=== PATIENT | female | born 1955 | race Caucasian/White ===

== ENCOUNTER 2018-03-03 10:31 | Emergency (ER) | payer SELFPAY, OTHER | END 2018-03-03 11:41 | disposition home or self-care (01) | LOC: FTE 10:31 | DX: L03.011 Cellulitis of right finger (principal); E11.9 Type 2 diabetes mellitus without complications; I10 Essential (primary) hypertension | CPT/HCPCS: 99283 ==

== ENCOUNTER 2018-03-05 05:45 | Emergency (ER) | payer MEDICAID | END 2018-03-05 06:46 | disposition home or self-care (01) | LOC: FTE 05:45 | DX: L03.011 Cellulitis of right finger (principal); E11.9 Type 2 diabetes mellitus without complications; I10 Essential (primary) hypertension | CPT/HCPCS: 10060; 99283-25 ==

== ENCOUNTER 2018-03-07 06:58 | Emergency (ER) | payer MEDICAID | END 2018-03-07 08:40 | disposition home or self-care (01) | LOC: FTE 06:58 | DX: L53.9 Erythematous condition, unspecified (principal); I10 Essential (primary) hypertension; E11.9 Type 2 diabetes mellitus without complications | CPT/HCPCS: 99283; Z7502 ==

== ENCOUNTER 2018-03-09 05:10 | Emergency (ER) | payer MEDICAID | END 2018-03-09 05:40 | disposition home or self-care (01) | LOC: FTE 05:10 | DX: Z48.01 Encounter for change or removal of surgical wound dressing (principal); I10 Essential (primary) hypertension; E11.9 Type 2 diabetes mellitus without complications | CPT/HCPCS: 99281 ==

== ENCOUNTER 2018-12-22 05:50 | Inpatient (IN) | payer OTHER, MEDICAID ==
[2018-12-22] MEDS: ASPIRIN 81 MG TAB PO (06:41)
[2018-12-22] MEDS: DILTIAZEM 25 MG INJ IV ×2 (06:42→07:07)
[2018-12-22 06:56] LABS: ADD MAN DIFF? NO
[2018-12-22 06:59] LABS: WHITE BLOOD COUNT 11.8 10^3/ul (4.8-10.8)
[2018-12-22 06:59] LABS: BASOPHILS % 0.3 % (0.0-2.0); EOSINOPHILS % 0.2 % (0.0-7.0); HEMATOCRIT 40.3 % (37.0-47.0); HEMOGLOBIN 13.4 g/dl (12.0-16.0); LYMPHOCYTES % 16.7 % (15.0-51.0); MEAN CORPUSCULAR HEMOGLOBIN 30.2 pg (29.0-33.0); MEAN CORPUSCULAR HGB CONC 33.3 g/dl (32.0-37.0); MEAN PLATELET VOLUME 11.2 fl (7.4-10.4); MONOCYTE # 0.9 10^3/ul (0.3-0.9); MONOCYTES % 7.4 % (0.0-11.0); NEUTROPHIL # 8.8 10^3/ul (1.6-7.5); NEUTROPHILS % 74.8 % (39.0-77.0); PLATELET COUNT 207 10^3/UL (140-415); RED BLOOD COUNT 4.43 10^6/ul (4.20-5.40); RED CELL DISTRIBUTION WIDTH 13.2 % (11.5-14.5)
[2018-12-22 07:17] LABS: INR 1.03; PROTIME 13.6 Sec (11.9-14.9); PT RATIO 1.1
[2018-12-22 07:18] LABS: PARTIAL THROMBOPLASTIN TIME 30.3 Sec (23.0-35.0)
[2018-12-22 07:21] LABS: ANION GAP 16 (5-13); BLOOD UREA NITROGEN 26 mg/dl (7-20); CALCIUM 9.7 mg/dl (8.4-10.2); CARBON DIOXIDE 23 mmol/L (21-31); CHLORIDE 101 mmol/L (97-110); CREATININE 0.97 mg/dl (0.44-1.00); Estimated GFR 58 mL/min (>60); GLUCOSE 207 mg/dl (70-220); POTASSIUM 3.6 mmol/L (3.5-5.1); SODIUM 140 mmol/L (135-144)
[2018-12-22 07:32] LABS: B-TYPE NATRIURETIC PEPTIDE 1120 PG/ML (0-125); TROPONIN-I < 0.012 ng/ml (0.000-0.120)
[2018-12-22] MEDS: DILTIAZEM-D5W 125MG/125ML DRIP 125 ML IV (07:50)
[2018-12-22] MEDS: SOD CHLORIDE 0.9% 500 ML IV (08:13)
[2018-12-22] MEDS: METOPROLOL 5 MG INJ IV (08:14)
[2018-12-22] MEDS: ACETAMINOPHEN 500 MG TAB PO ×2 (09:19→23:39)
[2018-12-22 11:41] LABS: FREE T4 (FREE THYROXINE) 1.79 ng/dl (0.78-2.44)
[2018-12-22] MEDS: ENOXAPARIN 100 MG/ML SYG SC ×2 (12:14→21:02)
[2018-12-22] MEDS: AMIODARONE 150MG/D5W BOLUS 100 ML IV (12:14)
[2018-12-22] MEDS: AZITHROMYCIN 250 MG TAB PO (12:15)
[2018-12-22 12:20] LABS: ADD UMIC YES; UR ASCORBIC ACID NEGATIVE (NEGATIVE); UR BILIRUBIN (Dip) NEGATIVE (NEGATIVE); UR BLOOD (Dip) NEGATIVE (NEGATIVE); UR CLARITY CLOUDY (CLEAR); UR COLOR AMBER (YELLOW); UR GLUCOSE (Dip) 3+ mg/dL (NEGATIVE); UR KETONES (Dip) TRACE mg/dL (NEGATIVE); UR LEUKOCYTE ESTERASE (Dip) TRACE Leu/ul (NEGATIVE); UR NITRITE (Dip) NEGATIVE (NEGATIVE); UR NONSQUAMOUS EPITHELIAL CELL 2 /HPF (NONE SEEN); UR RBC 5 /HPF (0-5); UR SPECIFIC GRAVITY (Dip) 1.028 (1.003-1.030); UR SQUAMOUS EPITHELIAL CELL FEW /HPF (FEW); UR TOTAL PROTEIN (Dip) 1+ mg/dl (NEGATIVE); UR UROBILINOGEN (Dip) 2+ mg/dL (NEGATIVE); UR WBC 15 /HPF (0-5)
[2018-12-22 12:43] LABS: AMPHETAMINE/METHAMPHETAMINE Negative (NEGATIVE); BARBITURATES Negative (NEGATIVE); BENZODIAZEPINES Negative (NEGATIVE); CANNABINOIDS Negative (NEGATIVE); COCAINE Negative (NEGATIVE); OPIATES Positive (NEGATIVE)
[2018-12-22 13:15] LABS: CREATINE KINASE 88 IU/L (23-200)
[2018-12-22 13:28] LABS: CK INDEX 1.6; TROPONIN-I 0.032 ng/ml (0.000-0.120)
[2018-12-22] MEDS ORDERED: GLUCOSE GEL 15 GRAM TUBE PO ×2 (18:30)
[2018-12-22] MEDS ORDERED: DEXTROSE 50% 50 ML SYRINGE IV ×2 (18:30)
[2018-12-22] MEDS ORDERED: GLUCOSE GEL 15 GRAM TUBE BUCCAL (18:30)
[2018-12-22] MEDS ORDERED: GLUCAGON 1 MG INJ IM (18:30)
[2018-12-22 19:41] LABS: CREATINE KINASE 76 IU/L (23-200)
[2018-12-22] MEDS: AMIODARONE 900 MG in DEXTROSE 5% 482 ML IV (19:44)
[2018-12-22 19:55] LABS: CK INDEX 1.6; CK-MB 1.19 ng/ml (0.0-2.4)
[2018-12-22] MEDS ORDERED: DIGOXIN 500 MCG INJ IV (20:56)
[2018-12-22] MEDS: INSULIN ASPART [NOVOLOG] 3 ML PEN SC ×2 (21:03→21:04)
[2018-12-22] MEDS: INSULIN GLARGINE [LANTus] (100 UNITS/ML) SYG SC (21:06)
[2018-12-22] MEDS: ATORVASTATIN 20 MG TAB PO (21:06)
[2018-12-22] MEDS: DIGOXIN 500 MCG INJ IV (21:08)
[2018-12-22] MEDS: ALBUTEROL HFA 8 GM INHALER INH (21:45)
[2018-12-23] MEDS: INSULIN ASPART [NOVOLOG] 3 ML PEN SC ×9 (01:00→20:36)
[2018-12-23] MEDS: ACCU-CHEK XX (01:44)
[2018-12-23 05:40] LABS: ADD MAN DIFF? NO
[2018-12-23 05:54] LABS: BASOPHILS % 0.4 % (0.0-2.0); EOSINOPHILS # 0.1 10^3/ul (0.0-0.5); HEMATOCRIT 35.2 % (37.0-47.0); HEMOGLOBIN 11.6 g/dl (12.0-16.0); LYMPHOCYTES # 1.7 10^3/ul (0.8-2.9); LYMPHOCYTES % 24.5 % (15.0-51.0); MEAN CORPUSCULAR HEMOGLOBIN 30.6 pg (29.0-33.0); MEAN CORPUSCULAR VOLUME 92.9 fl (82.0-101.0); MEAN PLATELET VOLUME 11.1 fl (7.4-10.4); MONOCYTE # 0.6 10^3/ul (0.3-0.9); MONOCYTES % 8.6 % (0.0-11.0); NEUTROPHIL # 4.5 10^3/ul (1.6-7.5); NEUTROPHILS % 65.1 % (39.0-77.0); PLATELET COUNT 190 10^3/UL (140-415); RED BLOOD COUNT 3.79 10^6/ul (4.20-5.40); RED CELL DISTRIBUTION WIDTH 13.3 % (11.5-14.5)
[2018-12-23] MEDS: ACETAMINOPHEN 500 MG TAB PO ×3 (05:56→23:58)
[2018-12-23 06:02] LABS: CHOL/HDL RATIO 3.9 RATIO; CHOLESTEROL 119 mg/dl (100-200); HDL CHOLESTEROL 30 mg/dl (35-98); LDL CHOLESTEROL,CALCULATED 61 mg/dl; MAGNESIUM 1.2 mg/dl (1.7-2.5); TRIGLYCERIDES 138 mg/dl (0-149)
[2018-12-23 06:02] LABS: PHOSPHORUS 2.4 mg/dl (2.5-4.9)
[2018-12-23] MEDS: CHOLECALCIFEROL 1,000 UNIT TAB PO (08:20)
[2018-12-23] MEDS: ENOXAPARIN 100 MG/ML SYG SC (08:37)
[2018-12-23] MEDS: METOPROLOL 25 MG TAB PO (10:56)
[2018-12-23] MEDS: AZITHROMYCIN 250 MG TAB PO (11:02)
[2018-12-23] MEDS: MAGNESIUM SULFATE 1 GM/D5W 100 ML IVPB (12:13)
[2018-12-23] MEDS: FUROSEMIDE 20 MG INJ IV (13:50)
[2018-12-23] MEDS: RIVAROXABAN 20 MG TABLET PO (18:54)
[2018-12-23] MEDS: METOPROLOL 50 MG TAB PO (20:29)
[2018-12-23] MEDS: DOXYCYCLINE 100 MG TAB PO (20:38)
[2018-12-23] MEDS: INSULIN GLARGINE [LANTus] (100 UNITS/ML) SYG SC (20:41)
[2018-12-23] MEDS: ATORVASTATIN 20 MG TAB PO (21:29)
[2018-12-24] MEDS: INSULIN ASPART [NOVOLOG] 3 ML PEN SC ×9 (01:00→21:50)
[2018-12-24] MEDS: ACCU-CHEK XX (01:55)
[2018-12-24] MEDS: traMADol 50 MG TAB PO ×3 (04:19→21:37)
[2018-12-24 05:46] LABS: ADD MAN DIFF? NO; BASOPHILS % 0.1 % (0.0-2.0); EOSINOPHILS # 0.1 10^3/ul (0.0-0.5); EOSINOPHILS % 1.1 % (0.0-7.0); HEMATOCRIT 33.7 % (37.0-47.0); HEMOGLOBIN 11.3 g/dl (12.0-16.0); LYMPHOCYTES # 1.2 10^3/ul (0.8-2.9); LYMPHOCYTES % 15.6 % (15.0-51.0); MEAN CORPUSCULAR HEMOGLOBIN 30.6 pg (29.0-33.0); MEAN CORPUSCULAR HGB CONC 33.5 g/dl (32.0-37.0); MEAN CORPUSCULAR VOLUME 91.3 fl (82.0-101.0); MEAN PLATELET VOLUME 10.5 fl (7.4-10.4); MONOCYTE # 0.7 10^3/ul (0.3-0.9); MONOCYTES % 8.6 % (0.0-11.0); NEUTROPHIL # 5.9 10^3/ul (1.6-7.5); NEUTROPHILS % 74.2 % (39.0-77.0); PLATELET COUNT 206 10^3/UL (140-415); RED BLOOD COUNT 3.69 10^6/ul (4.20-5.40)
[2018-12-24 05:46] LABS: WHITE BLOOD COUNT 7.9 10^3/ul (4.8-10.8)
[2018-12-24 05:56] LABS: ANION GAP 8 (5-13); BLOOD UREA NITROGEN 24 mg/dl (7-20); CALCIUM 9.7 mg/dl (8.4-10.2); CARBON DIOXIDE 28 mmol/L (21-31); CHLORIDE 103 mmol/L (97-110); CREATININE 0.72 mg/dl (0.44-1.00); Estimated GFR > 60 mL/min (>60); GLUCOSE 134 mg/dl (70-220); POTASSIUM 3.4 mmol/L (3.5-5.1); SODIUM 139 mmol/L (135-144)
[2018-12-24 06:06] LABS: PHOSPHORUS 2.7 mg/dl (2.5-4.9)
[2018-12-24] MEDS: POTASSIUM CHLORIDE (SR) 20 MEQ TAB PO (06:59)
[2018-12-24] MEDS: MAGNESIUM SULFATE 4 GM/100 ML 100 ML IVPB (09:30)
[2018-12-24] MEDS: DOXYCYCLINE 100 MG TAB PO ×2 (09:47→21:37)
[2018-12-24] MEDS: METOPROLOL 50 MG TAB PO ×2 (09:47→21:36)
[2018-12-24] MEDS: LISINOPRIL 20 MG TAB PO (09:48)
[2018-12-24] MEDS: CHOLECALCIFEROL 1,000 UNIT TAB PO (09:48)
[2018-12-24] MEDS: POTASSIUM CHLORIDE 100 ML IVPB (10:35)
[2018-12-24] MEDS: KETOROLAC 30 MG INJ IM (17:31)
[2018-12-24] MEDS: ATORVASTATIN 20 MG TAB PO (21:35)
[2018-12-24] MEDS: RIVAROXABAN 20 MG TABLET PO (21:36)
[2018-12-24] MEDS: INSULIN GLARGINE [LANTus] (100 UNITS/ML) SYG SC (21:50)
[2018-12-25] MEDS: INSULIN ASPART [NOVOLOG] 3 ML PEN SC ×6 (01:00→17:08)
[2018-12-25] MEDS: ACCU-CHEK XX (02:00)
[2018-12-25 05:55] LABS: ADD MAN DIFF? NO
[2018-12-25 06:06] LABS: BASOPHILS % 0.2 % (0.0-2.0); EOSINOPHILS # 0.2 10^3/ul (0.0-0.5); EOSINOPHILS % 2.9 % (0.0-7.0); HEMOGLOBIN 10.8 g/dl (12.0-16.0); LYMPHOCYTES # 1.4 10^3/ul (0.8-2.9); LYMPHOCYTES % 25.9 % (15.0-51.0); MEAN CORPUSCULAR HEMOGLOBIN 30.3 pg (29.0-33.0); MEAN CORPUSCULAR HGB CONC 32.7 g/dl (32.0-37.0); MEAN CORPUSCULAR VOLUME 92.4 fl (82.0-101.0); MEAN PLATELET VOLUME 10.5 fl (7.4-10.4); MONOCYTE # 0.6 10^3/ul (0.3-0.9); MONOCYTES % 11.1 % (0.0-11.0); NEUTROPHIL # 3.3 10^3/ul (1.6-7.5); NEUTROPHILS % 59.7 % (39.0-77.0); PLATELET COUNT 212 10^3/UL (140-415); RED BLOOD COUNT 3.57 10^6/ul (4.20-5.40); RED CELL DISTRIBUTION WIDTH 13.2 % (11.5-14.5)
[2018-12-25 06:06] LABS: WHITE BLOOD COUNT 5.5 10^3/ul (4.8-10.8)
[2018-12-25 06:42] LABS: ANION GAP 9 (5-13); BLOOD UREA NITROGEN 34 mg/dl (7-20); CALCIUM 9.9 mg/dl (8.4-10.2); CARBON DIOXIDE 25 mmol/L (21-31); CHLORIDE 104 mmol/L (97-110); CREATININE 0.93 mg/dl (0.44-1.00); Estimated GFR > 60 mL/min (>60); GLUCOSE 136 mg/dl (70-220); SODIUM 138 mmol/L (135-144)
[2018-12-25 07:14] LABS: POTASSIUM 3.9 mmol/L (3.5-5.1)
[2018-12-25] MEDS: LISINOPRIL 20 MG TAB PO (08:15)
[2018-12-25] MEDS: METOPROLOL 50 MG TAB PO ×2 (08:16→20:10)
[2018-12-25] MEDS: DOXYCYCLINE 100 MG TAB PO ×2 (08:16→20:09)
[2018-12-25] MEDS: CHOLECALCIFEROL 1,000 UNIT TAB PO (08:16)
[2018-12-25 14:23] LABS: MAGNESIUM 1.6 mg/dl (1.7-2.5)
[2018-12-25 14:44] LABS: HEMOGLOBIN A1C 6.9 % (0-5.9)
[2018-12-25] MEDS: MAGNESIUM SULFATE 2 GM/50 ML 50 ML IVPB (15:31)
[2018-12-25] MEDS: RIVAROXABAN 20 MG TABLET PO (17:03)
[2018-12-25] MEDS: Insulin NOVOLOG SS MILD Algorithm (SS with meals and bedtime) SC ×2 (17:04→20:23)
[2018-12-25] MEDS ORDERED: INSULIN ASPART [NOVOLOG] 3 ML PEN SC (17:30)
[2018-12-25] MEDS: ATORVASTATIN 20 MG TAB PO (20:10)
[2018-12-25] MEDS: INSULIN GLARGINE [LANTus] (100 UNITS/ML) SYG SC (20:24)
[2018-12-26] MEDS: ACCU-CHEK XX (02:01)
[2018-12-26 05:22] LABS: ADD MAN DIFF? NO
[2018-12-26 05:42] LABS: BASOPHILS % 0.3 % (0.0-2.0); EOSINOPHILS # 0.1 10^3/ul (0.0-0.5); HEMATOCRIT 33.8 % (37.0-47.0); HEMOGLOBIN 11.3 g/dl (12.0-16.0); LYMPHOCYTES # 1.7 10^3/ul (0.8-2.9); LYMPHOCYTES % 24.8 % (15.0-51.0); MEAN CORPUSCULAR HEMOGLOBIN 30.6 pg (29.0-33.0); MEAN CORPUSCULAR HGB CONC 33.4 g/dl (32.0-37.0); MEAN CORPUSCULAR VOLUME 91.6 fl (82.0-101.0); MEAN PLATELET VOLUME 10.5 fl (7.4-10.4); MONOCYTE # 0.7 10^3/ul (0.3-0.9); MONOCYTES % 9.2 % (0.0-11.0); NEUTROPHIL # 4.5 10^3/ul (1.6-7.5); NEUTROPHILS % 63.4 % (39.0-77.0); PLATELET COUNT 243 10^3/UL (140-415); RED BLOOD COUNT 3.69 10^6/ul (4.20-5.40); RED CELL DISTRIBUTION WIDTH 13.1 % (11.5-14.5)
[2018-12-26 06:14] LABS: ANION GAP 8 (5-13); BLOOD UREA NITROGEN 34 mg/dl (7-20); CALCIUM 9.9 mg/dl (8.4-10.2); CARBON DIOXIDE 26 mmol/L (21-31); CHLORIDE 105 mmol/L (97-110); CREATININE 0.76 mg/dl (0.44-1.00); Estimated GFR > 60 mL/min (>60); GLUCOSE 160 mg/dl (70-220); POTASSIUM 4.3 mmol/L (3.5-5.1); SODIUM 139 mmol/L (135-144)
[2018-12-26 06:41] LABS: MAGNESIUM 1.4 mg/dl (1.7-2.5)
[2018-12-26 06:41] LABS: PHOSPHORUS 2.9 mg/dl (2.5-4.9)
[2018-12-26] MEDS: Insulin NOVOLOG SS MILD Algorithm (SS with meals and bedtime) SC ×4 (08:03→20:24)
[2018-12-26] MEDS: INSULIN ASPART [NOVOLOG] 3 ML PEN SC ×3 (08:03→17:20)
[2018-12-26] MEDS: MAGNESIUM SULFATE 2 GM/50 ML 50 ML IVPB (08:28)
[2018-12-26] MEDS: CHOLECALCIFEROL 1,000 UNIT TAB PO (08:30)
[2018-12-26] MEDS: DOXYCYCLINE 100 MG TAB PO ×2 (08:30→20:14)
[2018-12-26] MEDS: METOPROLOL 50 MG TAB PO ×2 (08:32→20:15)
[2018-12-26] MEDS: LISINOPRIL 20 MG TAB PO (08:32)
[2018-12-26] MEDS: ATORVASTATIN 20 MG TAB PO (20:14)
[2018-12-26] MEDS: INSULIN GLARGINE [LANTus] (100 UNITS/ML) SYG SC (20:24)
[2018-12-27] MEDS: ACCU-CHEK XX (02:00)
[2018-12-27] MEDS: INSULIN ASPART [NOVOLOG] 3 ML PEN SC ×3 (07:42→17:24)
[2018-12-27] MEDS: Insulin NOVOLOG SS MILD Algorithm (SS with meals and bedtime) SC ×3 (07:42→17:24)
[2018-12-27] MEDS: METOPROLOL 50 MG TAB PO (08:17)
[2018-12-27] MEDS: CHOLECALCIFEROL 1,000 UNIT TAB PO (08:18)
[2018-12-27] MEDS: LISINOPRIL 20 MG TAB PO (08:18)
[2018-12-27] MEDS: DOXYCYCLINE 100 MG TAB PO (08:18)
[2018-12-27] MEDS: RIVAROXABAN 20 MG TABLET PO (13:57)
== END 2018-12-27 17:45 | disposition home or self-care (01) | DRG 308 ==
LOC: E/R 05:50 → 6WM 12-23 22:18 → ICU 07:47
DX: I48.0 Paroxysmal atrial fibrillation (principal); I50.31 Acute diastolic (congestive) heart failure; J18.9 Pneumonia, unspecified organism; I13.0 Hypertensive heart and chronic kidney disease with heart failure and stage 1 through stage 4 chronic kidney disease, or unspecified chronic kidney disease; R07.9 Chest pain, unspecified; E78.5 Hyperlipidemia, unspecified; E11.22 Type 2 diabetes mellitus with diabetic chronic kidney disease; N18.2 Chronic kidney disease, stage 2 (mild); E83.42 Hypomagnesemia; E83.39 Other disorders of phosphorus metabolism; J06.9 Acute upper respiratory infection, unspecified; E87.6 Hypokalemia; M17.11 Unilateral primary osteoarthritis, right knee; M25.461 Effusion, right knee; Z79.84 Long term (current) use of oral hypoglycemic drugs
CPT/HCPCS: 36415; 71045; 73562; 73590; 80048; 80061; 80307; 81001; 82550; 82553; 82962; 83036; 83735; 83880; 84100; 84439; 84443; 84484; 85025; 85610; 85730; 87081; 87086; 93005; 93306; 93970; 96374; 97116; 97162; 99291-25

== ENCOUNTER 2019-04-27 15:51 | Inpatient (IN) | payer OTHER ==
[2019-04-27 16:51] LABS: ADD MAN DIFF? NO
[2019-04-27 16:53] LABS: WHITE BLOOD COUNT 7.2 10^3/ul (4.8-10.8)
[2019-04-27 16:53] LABS: BASOPHILS % 0.6 % (0.0-2.0); EOSINOPHILS # 0.1 10^3/ul (0.0-0.5); EOSINOPHILS % 1.8 % (0.0-7.0); HEMATOCRIT 39.8 % (37.0-47.0); HEMOGLOBIN 13.3 g/dl (12.0-16.0); LYMPHOCYTES # 2.8 10^3/ul (0.8-2.9); LYMPHOCYTES % 38.5 % (15.0-51.0); MEAN CORPUSCULAR HEMOGLOBIN 30.7 pg (29.0-33.0); MEAN CORPUSCULAR HGB CONC 33.4 g/dl (32.0-37.0); MEAN CORPUSCULAR VOLUME 91.9 fl (82.0-101.0); MEAN PLATELET VOLUME 11.2 fl (7.4-10.4); MONOCYTE # 0.6 10^3/ul (0.3-0.9); MONOCYTES % 7.7 % (0.0-11.0); NEUTROPHIL # 3.7 10^3/ul (1.6-7.5); NEUTROPHILS % 51.1 % (39.0-77.0); PLATELET COUNT 185 10^3/UL (140-415); RED BLOOD COUNT 4.33 10^6/ul (4.20-5.40); RED CELL DISTRIBUTION WIDTH 13.3 % (11.5-14.5)
[2019-04-27 17:12] LABS: INR 1.03; PARTIAL THROMBOPLASTIN TIME 28.3 Sec (23.0-35.0); PROTIME 13.6 Sec (11.9-14.9); PT RATIO 1.1
[2019-04-27] MEDS: SOD CHLORIDE 0.9% 1,000 ML IV (17:14)
[2019-04-27 17:58] LABS: ALANINE AMINOTRANSFERASE 22 IU/L (13-69); ALBUMIN 4.3 g/dl (3.3-4.9); ALBUMIN/GLOBULIN RATIO 1.22; ALKALINE PHOSPHATASE 75 IU/L (42-121); ANION GAP 12 (5-13); ASPARTATE AMINO TRANSFERASE 29 IU/L (15-46); BILIRUBIN,INDIRECT 0.9 mg/dl (0-1.1); BILIRUBIN,TOTAL 0.9 mg/dl (0.2-1.3); BLOOD UREA NITROGEN 45 mg/dl (7-20); CALCIUM 10.3 mg/dl (8.4-10.2); CARBON DIOXIDE 23 mmol/L (21-31); CHLORIDE 104 mmol/L (97-110); Estimated GFR 50 mL/min (>60); GLUCOSE 91 mg/dl (70-220); LIPASE 423 U/L (23-300); POTASSIUM 4.7 mmol/L (3.5-5.1); SODIUM 139 mmol/L (135-144); TOTAL PROTEIN 7.8 g/dl (6.1-8.1)
[2019-04-27 18:10] LABS: TROPONIN-I < 0.012 ng/ml (0.000-0.120)
[2019-04-27] MEDS: ASPIRIN 81 MG TAB PO (18:36)
[2019-04-27 18:48] LABS: ADD UMIC NO; UR ASCORBIC ACID NEGATIVE (NEGATIVE); UR BILIRUBIN (Dip) NEGATIVE (NEGATIVE); UR BLOOD (Dip) NEGATIVE (NEGATIVE); UR CLARITY CLEAR (CLEAR); UR COLOR STRAW (YELLOW); UR GLUCOSE (Dip) 2+ mg/dL (NEGATIVE); UR KETONES (Dip) NEGATIVE (NEGATIVE); UR LEUKOCYTE ESTERASE (Dip) NEGATIVE Leu/ul (NEGATIVE); UR NITRITE (Dip) NEGATIVE (NEGATIVE); UR SPECIFIC GRAVITY (Dip) 1.011 (1.003-1.030); UR TOTAL PROTEIN (Dip) NEGATIVE (NEGATIVE); UR UROBILINOGEN (Dip) NEGATIVE (NEGATIVE)
[2019-04-27] MEDS ORDERED: NACL 0.9% 3 ML SYG IV (19:00)
[2019-04-27] MEDS ORDERED: ONDANSETRON 4 MG INJ IV (19:00)
[2019-04-27] MEDS: DEXTROSE 5%-0.45% NACL 1,000 ML IV (19:10)
[2019-04-27] MEDS: ACETAMINOPHEN 325 MG TAB PO (19:47)
[2019-04-27] MEDS: LEVETIRACETAM 500 MG (PMX) 100 ML IVPB (20:32)
[2019-04-28] MEDS ORDERED: DEXTROSE 50% 50 ML SYRINGE IV ×2 (01:00)
[2019-04-28] MEDS ORDERED: GLUCOSE GEL 15 GRAM TUBE BUCCAL (01:00)
[2019-04-28] MEDS ORDERED: GLUCOSE GEL 15 GRAM TUBE PO ×2 (01:00)
[2019-04-28] MEDS ORDERED: GLUCAGON 1 MG INJ IM (01:00)
[2019-04-28] MEDS: ACCU-CHEK XX (02:54)
[2019-04-28] MEDS: DEXTROSE 5%-0.45% NACL 1,000 ML IV ×3 (05:04→23:27)
[2019-04-28 05:32] LABS: ADD MAN DIFF? NO
[2019-04-28 05:42] LABS: WHITE BLOOD COUNT 4.4 10^3/ul (4.8-10.8)
[2019-04-28 05:43] LABS: BASOPHILS % 0.7 % (0.0-2.0); EOSINOPHILS # 0.1 10^3/ul (0.0-0.5); EOSINOPHILS % 2.5 % (0.0-7.0); HEMATOCRIT 35.6 % (37.0-47.0); HEMOGLOBIN 11.9 g/dl (12.0-16.0); LYMPHOCYTES % 45.7 % (15.0-51.0); MEAN CORPUSCULAR HEMOGLOBIN 30.7 pg (29.0-33.0); MEAN CORPUSCULAR HGB CONC 33.4 g/dl (32.0-37.0); MEAN CORPUSCULAR VOLUME 91.8 fl (82.0-101.0); MEAN PLATELET VOLUME 10.5 fl (7.4-10.4); MONOCYTE # 0.4 10^3/ul (0.3-0.9); NEUTROPHIL # 1.9 10^3/ul (1.6-7.5); NEUTROPHILS % 42.9 % (39.0-77.0); PLATELET COUNT 155 10^3/UL (140-415); RED BLOOD COUNT 3.88 10^6/ul (4.20-5.40); RED CELL DISTRIBUTION WIDTH 13.4 % (11.5-14.5)
[2019-04-28] MEDS: LORAZEPAM 2 MG INJ IV (05:55)
[2019-04-28 06:06] LABS: ALANINE AMINOTRANSFERASE 28 IU/L (13-69); ALBUMIN 3.6 g/dl (3.3-4.9); ALKALINE PHOSPHATASE 68 IU/L (42-121); ANION GAP 7 (5-13); ASPARTATE AMINO TRANSFERASE 21 IU/L (15-46); BLOOD UREA NITROGEN 32 mg/dl (7-20); CALCIUM 9.4 mg/dl (8.4-10.2); CARBON DIOXIDE 24 mmol/L (21-31); CHLORIDE 108 mmol/L (97-110); CHOL/HDL RATIO 4.2 RATIO; CHOLESTEROL 111 mg/dl (100-200); CREATININE 0.89 mg/dl (0.44-1.00); Estimated GFR > 60 mL/min (>60); GLUCOSE 119 mg/dl (70-220); HDL CHOLESTEROL 26 mg/dl (35-98); LDL CHOLESTEROL,CALCULATED 50 mg/dl; POTASSIUM 4.1 mmol/L (3.5-5.1); SODIUM 139 mmol/L (135-144); TOTAL PROTEIN 6.6 g/dl (6.1-8.1); TRIGLYCERIDES 175 mg/dl (0-149)
[2019-04-28 06:38] LABS: HEMOGLOBIN A1C 5.9 % (0-5.9)
[2019-04-28 07:52] LABS: LIPASE 256 U/L (23-300)
[2019-04-28] MEDS: INSULIN ASPART [NOVOLOG] 3 ML PEN SC ×4 (08:00→20:44)
[2019-04-28] MEDS: SOD CHLORIDE 0.9% 100 ML (08:32)
[2019-04-28] MEDS: IOHEXOL 100 ML (08:33)
[2019-04-28] MEDS: MAGNESIUM SULFATE 2 GM/50 ML 50 ML IVPB ×3 (08:37→12:09)
[2019-04-28] MEDS: METOPROLOL 50 MG TAB PO ×2 (08:40→20:45)
[2019-04-28] MEDS: LEVETIRACETAM 500 MG (PMX) 100 ML IVPB (13:21)
[2019-04-28 15:00] LABS: MAGNESIUM 2.1 mg/dl (1.7-2.5)
[2019-04-28] MEDS: MAGNESIUM SULFATE 4 GM/100 ML 100 ML IVPB (15:00)
[2019-04-28] MEDS: RIVAROXABAN 20 MG TABLET PO (17:03)
[2019-04-28] MEDS: LEVETIRACETAM 500 MG TAB PO (20:45)
[2019-04-28] MEDS: ATORVASTATIN 20 MG TAB PO (20:45)
[2019-04-28] MEDS: ACETAMINOPHEN 325 MG TAB PO (23:33)
[2019-04-29] MEDS: ACCU-CHEK XX (01:39)
[2019-04-29] MEDS: ACETAMINOPHEN 325 MG TAB PO (04:18)
[2019-04-29 05:09] LABS: ADD MAN DIFF? NO
[2019-04-29 05:12] LABS: BASOPHILS % 0.7 % (0.0-2.0); EOSINOPHILS # 0.1 10^3/ul (0.0-0.5); EOSINOPHILS % 2.2 % (0.0-7.0); HEMATOCRIT 38.8 % (37.0-47.0); LYMPHOCYTES # 1.9 10^3/ul (0.8-2.9); LYMPHOCYTES % 40.9 % (15.0-51.0); MEAN CORPUSCULAR HEMOGLOBIN 30.4 pg (29.0-33.0); MEAN CORPUSCULAR HGB CONC 33.5 g/dl (32.0-37.0); MEAN CORPUSCULAR VOLUME 90.7 fl (82.0-101.0); MEAN PLATELET VOLUME 10.8 fl (7.4-10.4); MONOCYTE # 0.4 10^3/ul (0.3-0.9); MONOCYTES % 7.8 % (0.0-11.0); NEUTROPHIL # 2.2 10^3/ul (1.6-7.5); NEUTROPHILS % 48.4 % (39.0-77.0); PLATELET COUNT 171 10^3/UL (140-415); RED BLOOD COUNT 4.28 10^6/ul (4.20-5.40); RED CELL DISTRIBUTION WIDTH 13.2 % (11.5-14.5)
[2019-04-29 05:12] LABS: WHITE BLOOD COUNT 4.6 10^3/ul (4.8-10.8)
[2019-04-29 05:46] LABS: ANION GAP 8 (5-13); BLOOD UREA NITROGEN 24 mg/dl (7-20); CALCIUM 9.6 mg/dl (8.4-10.2); CARBON DIOXIDE 28 mmol/L (21-31); CHLORIDE 106 mmol/L (97-110); CREATININE 0.91 mg/dl (0.44-1.00); Estimated GFR > 60 mL/min (>60); GLUCOSE 135 mg/dl (70-220); MAGNESIUM 1.8 mg/dl (1.7-2.5); POTASSIUM 4.3 mmol/L (3.5-5.1); SODIUM 142 mmol/L (135-144)
[2019-04-29] MEDS: METOPROLOL 50 MG TAB PO (07:37)
[2019-04-29] MEDS: LEVETIRACETAM 500 MG TAB PO (07:37)
[2019-04-29] MEDS: DEXTROSE 5%-0.45% NACL 1,000 ML IV (07:37)
[2019-04-29] MEDS: INSULIN ASPART [NOVOLOG] 3 ML PEN SC ×3 (07:40→17:07)
[2019-04-29] MEDS: RIVAROXABAN 20 MG TABLET PO (17:02)
== END 2019-04-29 17:47 | disposition home or self-care (01) | DRG 640 ==
LOC: E/R 15:51 → 6WM 18:44
DX: E86.0 Dehydration (principal); K85.90 Acute pancreatitis without necrosis or infection, unspecified; G45.9 Transient cerebral ischemic attack, unspecified; I48.0 Paroxysmal atrial fibrillation; E11.9 Type 2 diabetes mellitus without complications; I10 Essential (primary) hypertension; E78.5 Hyperlipidemia, unspecified; G40.909 Epilepsy, unspecified, not intractable, without status epilepticus; I65.03 Occlusion and stenosis of bilateral vertebral arteries; E66.9 Obesity, unspecified; Z68.33 Body mass index [BMI] 33.0-33.9, adult; Z79.4 Long term (current) use of insulin; Z79.82 Long term (current) use of aspirin; Z79.01 Long term (current) use of anticoagulants; Z79.02 Long term (current) use of antithrombotics/antiplatelets
CPT/HCPCS: 36415; 70450; 70496; 70498; 70551; 71045; 76705; 80048; 80053; 80061; 81003; 82962; 83036; 83690; 83735; 84443; 84484; 85025; 85610; 85730; 93005; 93306; 97161; 99285-25

== ENCOUNTER 2019-05-16 07:20 | Inpatient (IN) | payer OTHER ==
[2019-05-16 08:29] LABS: ADD MAN DIFF? NO
[2019-05-16 08:35] LABS: BASOPHILS % 0.5 % (0.0-2.0); EOSINOPHILS # 0.1 10^3/ul (0.0-0.5); EOSINOPHILS % 1.5 % (0.0-7.0); HEMATOCRIT 43.3 % (37.0-47.0); HEMOGLOBIN 14.5 g/dl (12.0-16.0); LYMPHOCYTES # 1.8 10^3/ul (0.8-2.9); MEAN CORPUSCULAR HEMOGLOBIN 30.5 pg (29.0-33.0); MEAN CORPUSCULAR HGB CONC 33.5 g/dl (32.0-37.0); MEAN PLATELET VOLUME 10.7 fl (7.4-10.4); MONOCYTE # 0.5 10^3/ul (0.3-0.9); MONOCYTES % 6.5 % (0.0-11.0); NEUTROPHIL # 5.5 10^3/ul (1.6-7.5); NEUTROPHILS % 69.2 % (39.0-77.0); PLATELET COUNT 182 10^3/UL (140-415); RED BLOOD COUNT 4.76 10^6/ul (4.20-5.40); RED CELL DISTRIBUTION WIDTH 12.8 % (11.5-14.5)
[2019-05-16] MEDS: LEVETIRACETAM 1000 MG (PMX) 100 ML IVPB (08:43)
[2019-05-16] MEDS: ASPIRIN 81 MG TAB PO (08:44)
[2019-05-16 08:53] LABS: ANION GAP 9 (5-13); BLOOD UREA NITROGEN 27 mg/dl (7-20); CALCIUM 10.1 mg/dl (8.4-10.2); CARBON DIOXIDE 27 mmol/L (21-31); CHLORIDE 103 mmol/L (97-110); CREATININE 0.83 mg/dl (0.44-1.00); Estimated GFR > 60 mL/min (>60); GLUCOSE 153 mg/dl (70-220); POTASSIUM 4.5 mmol/L (3.5-5.1); SODIUM 139 mmol/L (135-144)
[2019-05-16 08:57] LABS: INR 1.11; PROTIME 14.4 Sec (11.9-14.9); PT RATIO 1.1
[2019-05-16 09:04] LABS: ADD UMIC YES; TROPONIN-I < 0.012 ng/ml (0.000-0.120); UR ASCORBIC ACID NEGATIVE (NEGATIVE); UR BILIRUBIN (Dip) NEGATIVE (NEGATIVE); UR BLOOD (Dip) NEGATIVE (NEGATIVE); UR CLARITY CLEAR (CLEAR); UR COLOR YELLOW (YELLOW); UR GLUCOSE (Dip) 3+ mg/dL (NEGATIVE); UR KETONES (Dip) NEGATIVE (NEGATIVE); UR LEUKOCYTE ESTERASE (Dip) NEGATIVE Leu/ul (NEGATIVE); UR NITRITE (Dip) NEGATIVE (NEGATIVE); UR RBC 1 /HPF (0-5); UR SPECIFIC GRAVITY (Dip) 1.016 (1.003-1.030); UR SQUAMOUS EPITHELIAL CELL FEW /HPF (FEW); UR TOTAL PROTEIN (Dip) 1+ mg/dl (NEGATIVE); UR UROBILINOGEN (Dip) NEGATIVE (NEGATIVE); UR WBC 2 /HPF (0-5)
[2019-05-16 10:10] LABS: MAGNESIUM 0.8 mg/dl (1.7-2.5)
[2019-05-16] MEDS ORDERED: ONDANSETRON 4 MG INJ IV (10:30)
[2019-05-16] MEDS: MAGNESIUM SULFATE 2 GM/50 ML 50 ML IVPB (11:03)
[2019-05-16] MEDS: LORAZEPAM 2 MG INJ IV (12:09)
[2019-05-16] MEDS ORDERED: DOCUSATE SODIUM 100 MG CAP PO (14:00)
[2019-05-16] MEDS ORDERED: NACL 0.9% 3 ML SYG IV (14:00)
[2019-05-16] MEDS ORDERED: DEXTROSE 50% 50 ML SYRINGE IV ×2 (14:30)
[2019-05-16] MEDS ORDERED: GLUCOSE GEL 15 GRAM TUBE PO ×2 (14:30)
[2019-05-16] MEDS ORDERED: GLUCAGON 1 MG INJ IM (14:30)
[2019-05-16] MEDS ORDERED: GLUCOSE GEL 15 GRAM TUBE BUCCAL (14:30)
[2019-05-16] MEDS: MAGNESIUM SULFATE 4 GM/100 ML 100 ML IVPB (15:24)
[2019-05-16] MEDS: INSULIN ASPART [NOVOLOG] 3 ML PEN SC ×2 (18:00→21:00)
[2019-05-16 18:21] LABS: CREATININE,URINE RANDOM 111.72 mg/dl (20-320)
[2019-05-16 18:21] LABS: SODIUM,URINE RANDOM 49 mmol/L (30-90)
[2019-05-16] MEDS: RIVAROXABAN 20 MG TABLET PO (18:36)
[2019-05-16] MEDS: ACETAMINOPHEN 325 MG TAB PO (18:37)
[2019-05-16] MEDS: INSULIN GLARGINE [LANTus] (100 UNITS/ML) SYG SC (20:41)
[2019-05-16] MEDS ORDERED: ATORVASTATIN 20 MG TAB PO (21:00)
[2019-05-16] MEDS: LEVETIRACETAM 500 MG TAB PO (22:15)
[2019-05-16] MEDS: METOPROLOL 50 MG TAB PO (22:15)
[2019-05-16] MEDS: MAGNESIUM OXIDE 400 MG TAB PO (22:15)
[2019-05-16] MEDS: CITALOPRAM 20 MG TAB PO (22:16)
[2019-05-16] MEDS: FAMOTIDINE 20 MG TAB PO (22:16)
[2019-05-16] MEDS: ATORVASTATIN 20 MG TAB PO (22:17)
[2019-05-17] MEDS: ACCU-CHEK XX (02:00)
[2019-05-17 05:28] LABS: ADD MAN DIFF? NO
[2019-05-17 05:39] LABS: WHITE BLOOD COUNT 5.5 10^3/ul (4.8-10.8)
[2019-05-17 05:39] LABS: BASOPHILS % 0.5 % (0.0-2.0); EOSINOPHILS # 0.1 10^3/ul (0.0-0.5); EOSINOPHILS % 1.8 % (0.0-7.0); HEMATOCRIT 39.5 % (37.0-47.0); HEMOGLOBIN 13.4 g/dl (12.0-16.0); LYMPHOCYTES # 1.6 10^3/ul (0.8-2.9); LYMPHOCYTES % 29.5 % (15.0-51.0); MEAN CORPUSCULAR HEMOGLOBIN 30.8 pg (29.0-33.0); MEAN CORPUSCULAR HGB CONC 33.9 g/dl (32.0-37.0); MEAN CORPUSCULAR VOLUME 90.8 fl (82.0-101.0); MEAN PLATELET VOLUME 10.6 fl (7.4-10.4); MONOCYTE # 0.5 10^3/ul (0.3-0.9); MONOCYTES % 9.1 % (0.0-11.0); NEUTROPHIL # 3.3 10^3/ul (1.6-7.5); NEUTROPHILS % 58.9 % (39.0-77.0); PLATELET COUNT 184 10^3/UL (140-415); RED BLOOD COUNT 4.35 10^6/ul (4.20-5.40); RED CELL DISTRIBUTION WIDTH 12.9 % (11.5-14.5)
[2019-05-17 06:02] LABS: ALANINE AMINOTRANSFERASE 18 IU/L (13-69); ALBUMIN/GLOBULIN RATIO 1.33; ALKALINE PHOSPHATASE 79 IU/L (42-121); ANION GAP 9 (5-13); ASPARTATE AMINO TRANSFERASE 20 IU/L (15-46); BILIRUBIN,INDIRECT 1.6 mg/dl (0-1.1); BILIRUBIN,TOTAL 1.6 mg/dl (0.2-1.3); BLOOD UREA NITROGEN 26 mg/dl (7-20); CALCIUM 9.7 mg/dl (8.4-10.2); CARBON DIOXIDE 27 mmol/L (21-31); CHLORIDE 104 mmol/L (97-110); CHOL/HDL RATIO 4.3 RATIO; CHOLESTEROL 127 mg/dl (100-200); CREATININE 0.94 mg/dl (0.44-1.00); Estimated GFR > 60 mL/min (>60); GLUCOSE 122 mg/dl (70-220); HDL CHOLESTEROL 29 mg/dl (35-98); LDL CHOLESTEROL,CALCULATED 67 mg/dl; MAGNESIUM 1.7 mg/dl (1.7-2.5); POTASSIUM 4.4 mmol/L (3.5-5.1); SODIUM 140 mmol/L (135-144); TRIGLYCERIDES 153 mg/dl (0-149)
[2019-05-17] MEDS: ACETAMINOPHEN 325 MG TAB PO (06:21)
[2019-05-17 06:29] LABS: HEMOGLOBIN A1C 5.8 % (0-5.9)
[2019-05-17] MEDS: INSULIN ASPART [NOVOLOG] 3 ML PEN SC ×4 (08:00→21:00)
[2019-05-17] MEDS: MAGNESIUM OXIDE 400 MG TAB PO ×2 (09:02→20:23)
[2019-05-17] MEDS: LISINOPRIL 10 MG TAB PO (09:03)
[2019-05-17] MEDS: LEVETIRACETAM 500 MG TAB PO ×2 (09:03→20:23)
[2019-05-17] MEDS: ASPIRIN 81 MG TAB PO (09:03)
[2019-05-17] MEDS: FAMOTIDINE 20 MG TAB PO ×2 (09:04→20:23)
[2019-05-17] MEDS: METOPROLOL 50 MG TAB PO ×2 (09:04→20:23)
[2019-05-17] MEDS: CHOLECALCIFEROL 1,000 UNIT TAB PO (09:55)
[2019-05-17 15:36] LABS: CREATININE, RANDOM URINE 111 mg/dL (20-275); MICROALBUMIN/CREATININE RATIO 99 (<30)
[2019-05-17] MEDS: RIVAROXABAN 20 MG TABLET PO (17:28)
[2019-05-17] MEDS: ATORVASTATIN 20 MG TAB PO (20:23)
[2019-05-17] MEDS: CITALOPRAM 20 MG TAB PO (20:24)
[2019-05-17] MEDS: INSULIN GLARGINE [LANTus] (100 UNITS/ML) SYG SC (20:29)
[2019-05-18] MEDS: ACCU-CHEK XX (02:00)
[2019-05-18 06:08] LABS: ADD MAN DIFF? NO
[2019-05-18 06:13] LABS: WHITE BLOOD COUNT 5.7 10^3/ul (4.8-10.8)
[2019-05-18 06:13] LABS: BASOPHILS % 0.7 % (0.0-2.0); EOSINOPHILS # 0.1 10^3/ul (0.0-0.5); EOSINOPHILS % 2.1 % (0.0-7.0); HEMATOCRIT 39.5 % (37.0-47.0); LYMPHOCYTES # 2.2 10^3/ul (0.8-2.9); LYMPHOCYTES % 37.8 % (15.0-51.0); MEAN CORPUSCULAR HGB CONC 32.9 g/dl (32.0-37.0); MEAN CORPUSCULAR VOLUME 91.2 fl (82.0-101.0); MEAN PLATELET VOLUME 10.9 fl (7.4-10.4); MONOCYTE # 0.5 10^3/ul (0.3-0.9); MONOCYTES % 7.9 % (0.0-11.0); NEUTROPHIL # 2.9 10^3/ul (1.6-7.5); NEUTROPHILS % 51.3 % (39.0-77.0); PLATELET COUNT 181 10^3/UL (140-415); RED BLOOD COUNT 4.33 10^6/ul (4.20-5.40); RED CELL DISTRIBUTION WIDTH 12.8 % (11.5-14.5)
[2019-05-18 06:33] LABS: ANION GAP 10 (5-13); BLOOD UREA NITROGEN 42 mg/dl (7-20); CALCIUM 9.9 mg/dl (8.4-10.2); CARBON DIOXIDE 25 mmol/L (21-31); CHLORIDE 105 mmol/L (97-110); CREATININE 1.16 mg/dl (0.44-1.00); Estimated GFR 47 mL/min (>60); GLUCOSE 126 mg/dl (70-220); MAGNESIUM 1.6 mg/dl (1.7-2.5); POTASSIUM 4.4 mmol/L (3.5-5.1); SODIUM 140 mmol/L (135-144)
[2019-05-18] MEDS: INSULIN ASPART [NOVOLOG] 3 ML PEN SC ×4 (07:50→21:00)
[2019-05-18] MEDS: CHOLECALCIFEROL 1,000 UNIT TAB PO (08:20)
[2019-05-18] MEDS: FAMOTIDINE 20 MG TAB PO ×2 (08:21→21:20)
[2019-05-18] MEDS: METOPROLOL 50 MG TAB PO ×2 (08:21→21:19)
[2019-05-18] MEDS: LEVETIRACETAM 500 MG TAB PO ×2 (08:21→21:19)
[2019-05-18] MEDS: LISINOPRIL 10 MG TAB PO (08:21)
[2019-05-18] MEDS: MAGNESIUM OXIDE 400 MG TAB PO ×2 (08:21→21:18)
[2019-05-18] MEDS: ASPIRIN 81 MG TAB PO (08:21)
[2019-05-18] MEDS: MAGNESIUM SULFATE 2 GM/50 ML 50 ML IVPB (08:28)
[2019-05-18] MEDS: CIPROFLOXACIN 500 MG TAB PO ×2 (11:30→17:38)
[2019-05-18] MEDS: RIVAROXABAN 20 MG TABLET PO (17:38)
[2019-05-18] MEDS: LORAZEPAM 2 MG INJ IV (20:40)
[2019-05-18] MEDS: ATORVASTATIN 20 MG TAB PO (21:19)
[2019-05-18] MEDS: CITALOPRAM 20 MG TAB PO (21:20)
[2019-05-18] MEDS: INSULIN GLARGINE [LANTus] (100 UNITS/ML) SYG SC (21:41)
[2019-05-19] MEDS: ACCU-CHEK XX (02:00)
[2019-05-19] MEDS: CIPROFLOXACIN 500 MG TAB PO ×2 (06:00→17:43)
[2019-05-19 06:59] LABS: ANION GAP 5 (5-13); BLOOD UREA NITROGEN 36 mg/dl (7-20); CARBON DIOXIDE 29 mmol/L (21-31); CHLORIDE 103 mmol/L (97-110); Estimated GFR 56 mL/min (>60); GLUCOSE 120 mg/dl (70-220); MAGNESIUM 1.7 mg/dl (1.7-2.5); POTASSIUM 4.6 mmol/L (3.5-5.1); SODIUM 137 mmol/L (135-144)
[2019-05-19] MEDS: INSULIN ASPART [NOVOLOG] 3 ML PEN SC ×4 (07:41→21:00)
[2019-05-19] MEDS: FAMOTIDINE 20 MG TAB PO ×2 (08:56→21:03)
[2019-05-19] MEDS: ASPIRIN 81 MG TAB PO (08:56)
[2019-05-19] MEDS: LISINOPRIL 10 MG TAB PO (08:56)
[2019-05-19] MEDS: CHOLECALCIFEROL 1,000 UNIT TAB PO (08:56)
[2019-05-19] MEDS: LEVETIRACETAM 500 MG TAB PO ×2 (08:56→21:02)
[2019-05-19] MEDS: MAGNESIUM OXIDE 400 MG TAB PO ×2 (08:56→21:02)
[2019-05-19] MEDS: METOPROLOL 50 MG TAB PO ×2 (13:03→21:02)
[2019-05-19] MEDS: RIVAROXABAN 20 MG TABLET PO (17:43)
[2019-05-19] MEDS: INSULIN GLARGINE [LANTus] (100 UNITS/ML) SYG SC (20:00)
[2019-05-19] MEDS: CITALOPRAM 20 MG TAB PO (21:02)
[2019-05-19] MEDS: ATORVASTATIN 20 MG TAB PO (21:02)
[2019-05-20] MEDS: ACCU-CHEK XX (02:00)
[2019-05-20 06:10] LABS: MAGNESIUM 1.6 mg/dl (1.7-2.5)
[2019-05-20] MEDS: CIPROFLOXACIN 500 MG TAB PO ×2 (07:16→17:16)
[2019-05-20] MEDS: INSULIN ASPART [NOVOLOG] 3 ML PEN SC ×4 (07:54→21:00)
[2019-05-20] MEDS: CHOLECALCIFEROL 1,000 UNIT TAB PO (08:21)
[2019-05-20] MEDS: LISINOPRIL 10 MG TAB PO (08:21)
[2019-05-20] MEDS: FAMOTIDINE 20 MG TAB PO ×2 (08:21→21:21)
[2019-05-20] MEDS: MAGNESIUM OXIDE 400 MG TAB PO ×2 (08:21→21:20)
[2019-05-20] MEDS: LEVETIRACETAM 500 MG TAB PO ×2 (08:21→21:22)
[2019-05-20] MEDS: ASPIRIN 81 MG TAB PO (08:21)
[2019-05-20] MEDS: METOPROLOL 50 MG TAB PO ×3 (08:23→21:00)
[2019-05-20] MEDS: MAGNESIUM SULFATE 2 GM/50 ML 50 ML IVPB (08:29)
[2019-05-20] MEDS: ONDANSETRON 4 MG INJ IV (10:22)
[2019-05-20] MEDS: ACETAMINOPHEN 325 MG TAB PO ×2 (10:25→16:46)
[2019-05-20] MEDS: ACET/BUTAL/CAFF TAB PO (11:56)
[2019-05-20] MEDS: RIVAROXABAN 20 MG TABLET PO (17:16)
[2019-05-20] MEDS: ATORVASTATIN 20 MG TAB PO (21:21)
[2019-05-20] MEDS: CITALOPRAM 20 MG TAB PO (21:21)
[2019-05-20] MEDS: INSULIN GLARGINE [LANTus] (100 UNITS/ML) SYG SC (21:38)
[2019-05-21] MEDS: ACCU-CHEK XX (02:00)
[2019-05-21] MEDS: ACETAMINOPHEN 325 MG TAB PO (05:29)
[2019-05-21] MEDS: CIPROFLOXACIN 500 MG TAB PO (06:15)
[2019-05-21 06:20] LABS: MAGNESIUM 1.6 mg/dl (1.7-2.5)
[2019-05-21] MEDS: INSULIN ASPART [NOVOLOG] 3 ML PEN SC ×2 (07:46→11:45)
[2019-05-21] MEDS: CHOLECALCIFEROL 1,000 UNIT TAB PO (09:12)
[2019-05-21] MEDS: LEVETIRACETAM 500 MG TAB PO (09:12)
[2019-05-21] MEDS: MAGNESIUM OXIDE 400 MG TAB PO (09:12)
[2019-05-21] MEDS: FAMOTIDINE 20 MG TAB PO (09:12)
[2019-05-21] MEDS: ASPIRIN 81 MG TAB PO (09:12)
[2019-05-21] MEDS: LISINOPRIL 10 MG TAB PO (09:13)
[2019-05-21] MEDS: METOPROLOL 50 MG TAB PO (09:13)
[2019-05-21] MEDS: MAGNESIUM SULFATE 3 GM in DEXTROSE 5% 100 ML IVPB (13:18)
== END 2019-05-21 16:45 | DRG 101 ==
LOC: 6WM 21:17 → E/R 07:20 → 6WM 10:20
PROVIDERS: Family Medicine
DX: G40.909 Epilepsy, unspecified, not intractable, without status epilepticus (principal); F33.9 Major depressive disorder, recurrent, unspecified; R25.1 Tremor, unspecified; E83.42 Hypomagnesemia; I48.0 Paroxysmal atrial fibrillation; E78.5 Hyperlipidemia, unspecified; E11.9 Type 2 diabetes mellitus without complications; F32.9 Major depressive disorder, single episode, unspecified; I10 Essential (primary) hypertension; E86.0 Dehydration; N39.0 Urinary tract infection, site not specified; R25.9 Unspecified abnormal involuntary movements; R53.81 Other malaise; Z86.73 Personal history of transient ischemic attack (TIA), and cerebral infarction without residual deficits; E55.9 Vitamin D deficiency, unspecified
CPT/HCPCS: 36415; 70450; 70551; 71045; 80048; 80053; 80061; 81001; 81003; 82043; 82607; 82652; 82962; 83036; 83735; 84100; 84155; 84300; 84443; 84484; 85025; 85610; 87040-91; 87086; 92507; 92523; 92526; 92610; 93005; 95819; 96374; 97110; 97116; 97162; 97530; 99285-25

== ENCOUNTER 2019-05-23 22:17 | Inpatient (IN) | payer OTHER ==
[2019-05-23 22:54] LABS: ADD MAN DIFF? NO
[2019-05-23 22:55] LABS: BASOPHILS % 0.4 % (0.0-2.0); EOSINOPHILS # 0.2 10^3/ul (0.0-0.5); EOSINOPHILS % 2.1 % (0.0-7.0); HEMATOCRIT 40.8 % (37.0-47.0); HEMOGLOBIN 13.3 g/dl (12.0-16.0); LYMPHOCYTES # 2.6 10^3/ul (0.8-2.9); LYMPHOCYTES % 36.1 % (15.0-51.0); MEAN CORPUSCULAR HEMOGLOBIN 30.6 pg (29.0-33.0); MEAN CORPUSCULAR HGB CONC 32.6 g/dl (32.0-37.0); MEAN PLATELET VOLUME 10.7 fl (7.4-10.4); MONOCYTE # 0.6 10^3/ul (0.3-0.9); MONOCYTES % 8.7 % (0.0-11.0); NEUTROPHIL # 3.7 10^3/ul (1.6-7.5); NEUTROPHILS % 52.6 % (39.0-77.0); PLATELET COUNT 197 10^3/UL (140-415); RED BLOOD COUNT 4.34 10^6/ul (4.20-5.40); RED CELL DISTRIBUTION WIDTH 12.9 % (11.5-14.5)
[2019-05-23 22:55] LABS: WHITE BLOOD COUNT 7.1 10^3/ul (4.8-10.8)
[2019-05-23 23:13] LABS: ADD UMIC YES; UR ASCORBIC ACID NEGATIVE (NEGATIVE); UR BILIRUBIN (Dip) NEGATIVE (NEGATIVE); UR BLOOD (Dip) NEGATIVE (NEGATIVE); UR CLARITY CLEAR (CLEAR); UR COLOR YELLOW (YELLOW); UR GLUCOSE (Dip) 3+ mg/dL (NEGATIVE); UR KETONES (Dip) NEGATIVE (NEGATIVE); UR LEUKOCYTE ESTERASE (Dip) TRACE Leu/ul (NEGATIVE); UR NITRITE (Dip) NEGATIVE (NEGATIVE); UR RBC 0 /HPF (0-5); UR SPECIFIC GRAVITY (Dip) 1.013 (1.003-1.030); UR TOTAL PROTEIN (Dip) NEGATIVE (NEGATIVE); UR UROBILINOGEN (Dip) NEGATIVE (NEGATIVE); UR WBC 5 /HPF (0-5)
[2019-05-23 23:15] LABS: INR 1.25; PROTIME 15.8 Sec (11.9-14.9); PT RATIO 1.2
[2019-05-23 23:16] LABS: PARTIAL THROMBOPLASTIN TIME 32.8 Sec (23.0-35.0)
[2019-05-23 23:23] LABS: ALANINE AMINOTRANSFERASE 41 IU/L (13-69); ALBUMIN 4.4 g/dl (3.3-4.9); ALBUMIN/GLOBULIN RATIO 1.25; ALKALINE PHOSPHATASE 85 IU/L (42-121); ANION GAP 8 (5-13); ASPARTATE AMINO TRANSFERASE 36 IU/L (15-46); BILIRUBIN,INDIRECT 0.8 mg/dl (0-1.1); BILIRUBIN,TOTAL 0.8 mg/dl (0.2-1.3); BLOOD UREA NITROGEN 45 mg/dl (7-20); CALCIUM 10.5 mg/dl (8.4-10.2); CARBON DIOXIDE 28 mmol/L (21-31); CHLORIDE 101 mmol/L (97-110); CREATININE 1.37 mg/dl (0.44-1.00); Estimated GFR 39 mL/min (>60); GLUCOSE 129 mg/dl (70-220); LIPASE 399 U/L (23-300); MAGNESIUM 1.4 mg/dl (1.7-2.5); POTASSIUM 4.5 mmol/L (3.5-5.1); SODIUM 137 mmol/L (135-144); TOTAL PROTEIN 7.9 g/dl (6.1-8.1)
[2019-05-23 23:35] LABS: TROPONIN-I < 0.012 ng/ml (0.000-0.120)
[2019-05-24] MEDS: MAGNESIUM SULFATE 2 GM/50 ML 50 ML IVPB (00:16)
[2019-05-24] MEDS ORDERED: ACETAMINOPHEN 325 MG TAB PO ×2 (02:30→06:00)
[2019-05-24] MEDS ORDERED: ONDANSETRON 4 MG INJ IV ×2 (02:30→06:00)
[2019-05-24] MEDS ORDERED: GLUCOSE GEL 15 GRAM TUBE PO ×2 (06:00)
[2019-05-24] MEDS ORDERED: DEXTROSE 50% 50 ML SYRINGE IV ×2 (06:00)
[2019-05-24] MEDS ORDERED: GLUCAGON 1 MG INJ IM (06:00)
[2019-05-24] MEDS ORDERED: GLUCOSE GEL 15 GRAM TUBE BUCCAL (06:00)
[2019-05-24] MEDS ORDERED: NACL 0.9% 3 ML SYG IV (06:00)
[2019-05-24] MEDS ORDERED: METOPROLOL 50 MG TAB PO (09:00)
[2019-05-24] MEDS: CHOLECALCIFEROL 1,000 UNIT TAB PO (09:20)
[2019-05-24] MEDS: metFORMIN 500 MG TAB PO ×2 (09:20→17:27)
[2019-05-24] MEDS: LEVETIRACETAM 500 MG TAB PO ×2 (09:20→20:55)
[2019-05-24] MEDS: BUSPIRONE 10 MG TAB PO ×2 (09:20→20:55)
[2019-05-24] MEDS: MAGNESIUM OXIDE 400 MG TAB PO ×2 (09:21→20:54)
[2019-05-24] MEDS: ASPIRIN (EC) 81 MG TAB PO (09:21)
[2019-05-24] MEDS: DOCUSATE SODIUM 100 MG CAP PO ×2 (09:21→20:55)
[2019-05-24] MEDS: FAMOTIDINE 20 MG TAB PO ×2 (09:22→20:54)
[2019-05-24] MEDS: METOPROLOL 50 MG TAB PO ×2 (09:22→20:55)
[2019-05-24] MEDS: LISINOPRIL 10 MG TAB PO (09:23)
[2019-05-24 09:36] LABS: MAGNESIUM 1.7 mg/dl (1.7-2.5)
[2019-05-24] MEDS: MAGNESIUM SULFATE 1 GM/D5W 100 ML IVPB (14:00)
[2019-05-24] MEDS: RIVAROXABAN 20 MG TABLET PO (17:27)
[2019-05-24] MEDS: CITALOPRAM 20 MG TAB PO (20:54)
[2019-05-24] MEDS: ATORVASTATIN 20 MG TAB PO (20:55)
[2019-05-25 04:54] LABS: ADD MAN DIFF? NO
[2019-05-25 04:59] LABS: BASOPHILS % 0.5 % (0.0-2.0); EOSINOPHILS # 0.1 10^3/ul (0.0-0.5); HEMATOCRIT 39.1 % (37.0-47.0); HEMOGLOBIN 12.8 g/dl (12.0-16.0); LYMPHOCYTES # 2.2 10^3/ul (0.8-2.9); LYMPHOCYTES % 37.1 % (15.0-51.0); MEAN CORPUSCULAR HEMOGLOBIN 29.9 pg (29.0-33.0); MEAN CORPUSCULAR HGB CONC 32.7 g/dl (32.0-37.0); MEAN CORPUSCULAR VOLUME 91.4 fl (82.0-101.0); MEAN PLATELET VOLUME 10.5 fl (7.4-10.4); MONOCYTE # 0.5 10^3/ul (0.3-0.9); MONOCYTES % 7.9 % (0.0-11.0); NEUTROPHIL # 3.1 10^3/ul (1.6-7.5); NEUTROPHILS % 52.2 % (39.0-77.0); PLATELET COUNT 192 10^3/UL (140-415); RED BLOOD COUNT 4.28 10^6/ul (4.20-5.40)
[2019-05-25 05:25] LABS: AMYLASE 73 U/L (11-123)
[2019-05-25 05:25] LABS: LIPASE 332 U/L (23-300)
[2019-05-25 05:32] LABS: ALANINE AMINOTRANSFERASE 36 IU/L (13-69); ALBUMIN 3.9 g/dl (3.3-4.9); ALBUMIN/GLOBULIN RATIO 1.25; ALKALINE PHOSPHATASE 78 IU/L (42-121); ANION GAP 8 (5-13); ASPARTATE AMINO TRANSFERASE 22 IU/L (15-46); BILIRUBIN,INDIRECT 0.9 mg/dl (0-1.1); BILIRUBIN,TOTAL 0.9 mg/dl (0.2-1.3); BLOOD UREA NITROGEN 37 mg/dl (7-20); CALCIUM 10.3 mg/dl (8.4-10.2); CARBON DIOXIDE 28 mmol/L (21-31); CHLORIDE 101 mmol/L (97-110); CREATININE 1.14 mg/dl (0.44-1.00); Estimated GFR 48 mL/min (>60); GLUCOSE 134 mg/dl (70-220); MAGNESIUM 1.5 mg/dl (1.7-2.5); SODIUM 137 mmol/L (135-144)
[2019-05-25 05:55] LABS: POTASSIUM 4.5 mmol/L (3.5-5.1)
[2019-05-25] MEDS: LEVETIRACETAM 500 MG TAB PO ×2 (08:41→20:44)
[2019-05-25] MEDS: ASPIRIN (EC) 81 MG TAB PO (08:41)
[2019-05-25] MEDS: metFORMIN 500 MG TAB PO ×2 (08:41→18:12)
[2019-05-25] MEDS: CHOLECALCIFEROL 1,000 UNIT TAB PO (08:41)
[2019-05-25] MEDS: MAGNESIUM OXIDE 400 MG TAB PO ×2 (08:41→20:45)
[2019-05-25] MEDS: DOCUSATE SODIUM 100 MG CAP PO ×2 (08:42→20:44)
[2019-05-25] MEDS: METOPROLOL 50 MG TAB PO ×2 (08:44→20:44)
[2019-05-25] MEDS: FAMOTIDINE 20 MG TAB PO ×2 (08:44→20:45)
[2019-05-25] MEDS: LISINOPRIL 10 MG TAB PO (08:44)
[2019-05-25] MEDS: BUSPIRONE 10 MG TAB PO ×2 (08:45→20:46)
[2019-05-25] MEDS: RIVAROXABAN 20 MG TABLET PO (18:06)
[2019-05-25] MEDS: SOD CHLORIDE 0.45% 1,000 ML IV (18:06)
[2019-05-25] MEDS: MAGNESIUM SULFATE 4 GM/100 ML 100 ML IVPB (18:13)
[2019-05-25] MEDS: ATORVASTATIN 20 MG TAB PO (20:45)
[2019-05-25] MEDS: CITALOPRAM 20 MG TAB PO (20:49)
[2019-05-26 05:47] LABS: ANION GAP 22 (5-13); BLOOD UREA NITROGEN 35 mg/dl (7-20); CALCIUM 10.2 mg/dl (8.4-10.2); CARBON DIOXIDE 27 mmol/L (21-31); CHLORIDE 101 mmol/L (97-110); CREATININE 1.01 mg/dl (0.44-1.00); Estimated GFR 55 mL/min (>60); GLUCOSE 132 mg/dl (70-220); MAGNESIUM 2.2 mg/dl (1.7-2.5); POTASSIUM 4.4 mmol/L (3.5-5.1); SODIUM 150 mmol/L (135-144)
[2019-05-26 07:06] LABS: SODIUM 137 mmol/L (135-144)
[2019-05-26] MEDS: metFORMIN 500 MG TAB PO ×2 (08:42→17:59)
[2019-05-26] MEDS: BUSPIRONE 10 MG TAB PO ×2 (08:42→20:57)
[2019-05-26] MEDS: MAGNESIUM OXIDE 400 MG TAB PO ×2 (08:43→20:57)
[2019-05-26] MEDS: CHOLECALCIFEROL 1,000 UNIT TAB PO (08:43)
[2019-05-26] MEDS: FAMOTIDINE 20 MG TAB PO ×2 (08:43→20:57)
[2019-05-26] MEDS: DOCUSATE SODIUM 100 MG CAP PO ×2 (08:43→20:58)
[2019-05-26] MEDS: LEVETIRACETAM 500 MG TAB PO ×2 (08:43→20:58)
[2019-05-26] MEDS: METOPROLOL 50 MG TAB PO ×2 (08:44→20:59)
[2019-05-26] MEDS: LISINOPRIL 10 MG TAB PO (08:44)
[2019-05-26] MEDS ORDERED: PETROLATUM 5 GM OINT TOP (11:59)
[2019-05-26] MEDS: SOD CHLORIDE 0.45% 1,000 ML IV (12:00)
[2019-05-26] MEDS: RIVAROXABAN 20 MG TABLET PO (17:59)
[2019-05-26] MEDS: ATORVASTATIN 20 MG TAB PO (20:57)
[2019-05-26] MEDS: CITALOPRAM 20 MG TAB PO (20:59)
[2019-05-27 05:55] LABS: ANION GAP 7 (5-13); BLOOD UREA NITROGEN 39 mg/dl (7-20); CARBON DIOXIDE 30 mmol/L (21-31); CHLORIDE 100 mmol/L (97-110); CREATININE 0.98 mg/dl (0.44-1.00); Estimated GFR 57 mL/min (>60); GLUCOSE 123 mg/dl (70-220); MAGNESIUM 1.6 mg/dl (1.7-2.5); POTASSIUM 4.6 mmol/L (3.5-5.1); SODIUM 137 mmol/L (135-144)
[2019-05-27] MEDS: CHOLECALCIFEROL 1,000 UNIT TAB PO (09:05)
[2019-05-27] MEDS: metFORMIN 500 MG TAB PO ×2 (09:05→17:55)
[2019-05-27] MEDS: DOCUSATE SODIUM 100 MG CAP PO ×2 (09:05→20:35)
[2019-05-27] MEDS: MAGNESIUM OXIDE 400 MG TAB PO ×3 (09:05→20:36)
[2019-05-27] MEDS: LEVETIRACETAM 500 MG TAB PO ×2 (09:06→20:36)
[2019-05-27] MEDS: FAMOTIDINE 20 MG TAB PO ×2 (09:06→20:35)
[2019-05-27] MEDS: LISINOPRIL 10 MG TAB PO (09:06)
[2019-05-27] MEDS: BUSPIRONE 10 MG TAB PO ×2 (09:06→20:37)
[2019-05-27] MEDS: METOPROLOL 50 MG TAB PO ×2 (09:07→20:35)
[2019-05-27] MEDS: MAGNESIUM SULFATE 2 GM/50 ML 50 ML IVPB (11:05)
[2019-05-27] MEDS: RIVAROXABAN 20 MG TABLET PO (17:55)
[2019-05-27] MEDS: ATORVASTATIN 20 MG TAB PO (20:37)
[2019-05-27] MEDS: CITALOPRAM 20 MG TAB PO (20:37)
[2019-05-28 02:46] LABS: CREATININE,URINE RANDOM 42.27 mg/dl (20-320)
[2019-05-28 02:46] LABS: SODIUM,URINE RANDOM 42 mmol/L (30-90)
[2019-05-28 06:16] LABS: ANION GAP 6 (5-13); BLOOD UREA NITROGEN 31 mg/dl (7-20); CALCIUM 9.5 mg/dl (8.4-10.2); CARBON DIOXIDE 28 mmol/L (21-31); CHLORIDE 102 mmol/L (97-110); CREATININE 0.99 mg/dl (0.44-1.00); Estimated GFR 57 mL/min (>60); GLUCOSE 108 mg/dl (70-220); MAGNESIUM 1.8 mg/dl (1.7-2.5); POTASSIUM 4.6 mmol/L (3.5-5.1); SODIUM 136 mmol/L (135-144)
[2019-05-28] MEDS: LEVETIRACETAM 500 MG TAB PO ×2 (08:36→21:05)
[2019-05-28] MEDS: metFORMIN 500 MG TAB PO ×2 (08:37→17:29)
[2019-05-28] MEDS: MAGNESIUM OXIDE 400 MG TAB PO ×3 (08:37→21:04)
[2019-05-28] MEDS: FAMOTIDINE 20 MG TAB PO ×2 (08:37→21:04)
[2019-05-28] MEDS: CHOLECALCIFEROL 1,000 UNIT TAB PO (08:37)
[2019-05-28] MEDS: LISINOPRIL 10 MG TAB PO (08:37)
[2019-05-28] MEDS: METOPROLOL 50 MG TAB PO ×2 (08:38→21:05)
[2019-05-28] MEDS: BUSPIRONE 10 MG TAB PO ×2 (08:38→21:05)
[2019-05-28] MEDS: DOCUSATE SODIUM 100 MG CAP PO ×2 (09:00→21:00)
[2019-05-28] MEDS: MAGNESIUM SULFATE 3 GM in DEXTROSE 5% 100 ML IVPB (16:09)
[2019-05-28] MEDS: RIVAROXABAN 20 MG TABLET PO (17:29)
[2019-05-28] MEDS: AMILORIDE 5 MG TAB PO (19:02)
[2019-05-28] MEDS: CITALOPRAM 20 MG TAB PO (21:04)
[2019-05-28] MEDS: OXCARBAZEPINE 150 MG TAB PO (21:04)
[2019-05-29 06:24] LABS: ADD MAN DIFF? NO
[2019-05-29 06:35] LABS: BASOPHILS % 0.5 % (0.0-2.0); EOSINOPHILS # 0.1 10^3/ul (0.0-0.5); EOSINOPHILS % 2.2 % (0.0-7.0); HEMATOCRIT 39.6 % (37.0-47.0); LYMPHOCYTES # 2.1 10^3/ul (0.8-2.9); LYMPHOCYTES % 34.7 % (15.0-51.0); MEAN CORPUSCULAR HEMOGLOBIN 30.5 pg (29.0-33.0); MEAN CORPUSCULAR HGB CONC 32.8 g/dl (32.0-37.0); MEAN PLATELET VOLUME 10.8 fl (7.4-10.4); MONOCYTE # 0.5 10^3/ul (0.3-0.9); MONOCYTES % 7.6 % (0.0-11.0); NEUTROPHIL # 3.2 10^3/ul (1.6-7.5); NEUTROPHILS % 54.8 % (39.0-77.0); PLATELET COUNT 193 10^3/UL (140-415); RED BLOOD COUNT 4.26 10^6/ul (4.20-5.40); RED CELL DISTRIBUTION WIDTH 12.6 % (11.5-14.5)
[2019-05-29 06:35] LABS: WHITE BLOOD COUNT 5.9 10^3/ul (4.8-10.8)
[2019-05-29 06:51] LABS: MAGNESIUM 2.2 mg/dl (1.7-2.5)
[2019-05-29 07:02] LABS: ALANINE AMINOTRANSFERASE 38 IU/L (13-69); ALBUMIN/GLOBULIN RATIO 1.29; ALKALINE PHOSPHATASE 83 IU/L (42-121); ANION GAP 8 (5-13); ASPARTATE AMINO TRANSFERASE 29 IU/L (15-46); BILIRUBIN,INDIRECT 0.9 mg/dl (0-1.1); BILIRUBIN,TOTAL 0.9 mg/dl (0.2-1.3); BLOOD UREA NITROGEN 30 mg/dl (7-20); CALCIUM 10.2 mg/dl (8.4-10.2); CARBON DIOXIDE 28 mmol/L (21-31); CHLORIDE 101 mmol/L (97-110); CREATININE 0.91 mg/dl (0.44-1.00); Estimated GFR > 60 mL/min (>60); GLUCOSE 120 mg/dl (70-220); POTASSIUM 4.6 mmol/L (3.5-5.1); SODIUM 137 mmol/L (135-144); TOTAL PROTEIN 7.1 g/dl (6.1-8.1)
[2019-05-29] MEDS: DOCUSATE SODIUM 100 MG CAP PO ×2 (09:00→21:00)
[2019-05-29] MEDS: METOPROLOL 50 MG TAB PO ×2 (09:00→21:14)
[2019-05-29] MEDS: LISINOPRIL 10 MG TAB PO (09:00)
[2019-05-29] MEDS: metFORMIN 500 MG TAB PO ×2 (09:16→18:26)
[2019-05-29] MEDS: BUSPIRONE 10 MG TAB PO ×2 (09:17→21:15)
[2019-05-29] MEDS: FAMOTIDINE 20 MG TAB PO ×2 (09:20→21:14)
[2019-05-29] MEDS: OXCARBAZEPINE 150 MG TAB PO ×2 (09:20→21:14)
[2019-05-29] MEDS: MAGNESIUM OXIDE 400 MG TAB PO ×3 (09:20→21:13)
[2019-05-29] MEDS: CHOLECALCIFEROL 1,000 UNIT TAB PO (09:21)
[2019-05-29] MEDS: AMILORIDE 5 MG TAB PO (10:56)
[2019-05-29] MEDS: RIVAROXABAN 20 MG TABLET PO (18:26)
[2019-05-29] MEDS: CITALOPRAM 20 MG TAB PO (21:15)
[2019-05-30 05:42] LABS: ADD MAN DIFF? NO
[2019-05-30 05:48] LABS: WHITE BLOOD COUNT 5.6 10^3/ul (4.8-10.8)
[2019-05-30 05:48] LABS: BASOPHILS % 0.7 % (0.0-2.0); EOSINOPHILS # 0.1 10^3/ul (0.0-0.5); HEMATOCRIT 39.5 % (37.0-47.0); HEMOGLOBIN 13.3 g/dl (12.0-16.0); LYMPHOCYTES # 2.2 10^3/ul (0.8-2.9); MEAN CORPUSCULAR HGB CONC 33.7 g/dl (32.0-37.0); MEAN CORPUSCULAR VOLUME 92.1 fl (82.0-101.0); MEAN PLATELET VOLUME 10.8 fl (7.4-10.4); MONOCYTE # 0.4 10^3/ul (0.3-0.9); MONOCYTES % 7.5 % (0.0-11.0); NEUTROPHIL # 2.8 10^3/ul (1.6-7.5); NEUTROPHILS % 50.6 % (39.0-77.0); PLATELET COUNT 202 10^3/UL (140-415); RED BLOOD COUNT 4.29 10^6/ul (4.20-5.40); RED CELL DISTRIBUTION WIDTH 12.6 % (11.5-14.5)
[2019-05-30 06:17] LABS: MAGNESIUM 1.8 mg/dl (1.7-2.5)
[2019-05-30 06:19] LABS: ALANINE AMINOTRANSFERASE 31 IU/L (13-69); ALBUMIN/GLOBULIN RATIO 1.25; ALKALINE PHOSPHATASE 72 IU/L (42-121); ANION GAP 6 (5-13); ASPARTATE AMINO TRANSFERASE 27 IU/L (15-46); BILIRUBIN,INDIRECT 0.9 mg/dl (0-1.1); BILIRUBIN,TOTAL 0.9 mg/dl (0.2-1.3); BLOOD UREA NITROGEN 33 mg/dl (7-20); CALCIUM 10.2 mg/dl (8.4-10.2); CARBON DIOXIDE 30 mmol/L (21-31); CHLORIDE 100 mmol/L (97-110); CREATININE 0.99 mg/dl (0.44-1.00); Estimated GFR 57 mL/min (>60); GLUCOSE 116 mg/dl (70-220); POTASSIUM 4.9 mmol/L (3.5-5.1); SODIUM 136 mmol/L (135-144); TOTAL PROTEIN 7.2 g/dl (6.1-8.1)
[2019-05-30] MEDS: FAMOTIDINE 20 MG TAB PO (08:55)
[2019-05-30] MEDS: DOCUSATE SODIUM 100 MG CAP PO ×2 (08:55→09:00)
[2019-05-30] MEDS: CHOLECALCIFEROL 1,000 UNIT TAB PO (08:56)
[2019-05-30] MEDS: LISINOPRIL 10 MG TAB PO (08:56)
[2019-05-30] MEDS: OXCARBAZEPINE 150 MG TAB PO (08:56)
[2019-05-30] MEDS: METOPROLOL 50 MG TAB PO (08:57)
[2019-05-30] MEDS: MAGNESIUM OXIDE 400 MG TAB PO ×2 (08:57→12:42)
[2019-05-30] MEDS: AMILORIDE 5 MG TAB PO (08:58)
[2019-05-30] MEDS: BUSPIRONE 10 MG TAB PO (08:59)
[2019-05-30] MEDS: metFORMIN 500 MG TAB PO ×2 (08:59→17:53)
[2019-05-30 13:31] LABS: CREATININE, RANDOM URINE 44 mg/dL (20-275); MICROALBUMIN 1.5 mg/dL; MICROALBUMIN/CREATININE RATIO 34 (<30)
[2019-05-30 16:25] LABS: ADD UMIC NO; UR ASCORBIC ACID NEGATIVE (NEGATIVE); UR BILIRUBIN (Dip) NEGATIVE (NEGATIVE); UR BLOOD (Dip) NEGATIVE (NEGATIVE); UR CLARITY CLEAR (CLEAR); UR COLOR STRAW (YELLOW); UR GLUCOSE (Dip) 3+ mg/dL (NEGATIVE); UR KETONES (Dip) NEGATIVE (NEGATIVE); UR LEUKOCYTE ESTERASE (Dip) NEGATIVE Leu/ul (NEGATIVE); UR NITRITE (Dip) NEGATIVE (NEGATIVE); UR SPECIFIC GRAVITY (Dip) 1.011 (1.003-1.030); UR TOTAL PROTEIN (Dip) NEGATIVE (NEGATIVE); UR UROBILINOGEN (Dip) NEGATIVE (NEGATIVE)
[2019-05-30] MEDS: RIVAROXABAN 20 MG TABLET PO (17:53)
[2019-05-30] MEDS ORDERED: CLOTRIMAZOLE 1% 30 GM CR TOP (21:00)
== END 2019-05-30 20:00 | disposition home health service (06) | DRG 641 ==
LOC: E/R 22:17 → MS1 05-24 02:29
DX: E83.42 Hypomagnesemia (principal); N39.0 Urinary tract infection, site not specified; N17.9 Acute kidney failure, unspecified; I48.0 Paroxysmal atrial fibrillation; I10 Essential (primary) hypertension; E11.9 Type 2 diabetes mellitus without complications; R53.81 Other malaise; N28.9 Disorder of kidney and ureter, unspecified; E86.0 Dehydration; F32.9 Major depressive disorder, single episode, unspecified; E66.9 Obesity, unspecified; Z68.31 Body mass index [BMI] 31.0-31.9, adult; Z86.73 Personal history of transient ischemic attack (TIA), and cerebral infarction without residual deficits
CPT/HCPCS: 36415; 80048; 80053; 81001; 81003; 82043; 82150; 82962; 83690; 83735; 84100; 84155; 84295; 84300; 84484; 85025; 85610; 85730; 96365; 96366; 97110; 97116; 97162; 97530; 99285-25